=== PATIENT | female | born 1975 | race Caucasian/White ===

== ENCOUNTER 2017-03-07 22:28 | Outpatient (CLI) | payer BC ==
[~2017-03-07 22:28] MED LIST: AMBIEN5 MG PO; CYMBALTA60 MG PO; DULOXETINE HCL60 MG PO; IMITREX100 MG PO; MOTRIN600 MG PO; PRENATAL TABLE1 EAC3 PO; VICODIN 5-3001 EACH PO; VITAMIN B-6100 MG PO; ZOLPIDEM TARTRAT5 MG PO
[2017-03-07 22:38] VITALS: BP 131/67
[2017-03-07 23:39] LABS: ADD MIUA? NO; BILIRUBIN NEGATIVE; BLOOD NEGATIVE; COLOR STRAW ((YELLOW)); GLUCOSE (STRIP) NEGATIVE; KETONES NEGATIVE; LEUKOCYTES NEGATIVE; NITRITE NEGATIVE; PROTEIN (STRIP) NEGATIVE; SPECIFIC GRAVITY 1.004 (1.000-1.030); UCUL ADDED? NO; UROBILINOGEN 0.2 MG/DL (0.2-1.0)
[2017-03-07] MEDS ORDERED: LO-DOSE ASPIRIN81 M2 PO (23:58)
[2017-03-07] MEDS ORDERED: MAKENA250 MG/11 IM (23:59)
[2017-03-08] MEDS ORDERED: DICLEGIS DR 101 EACH PO
[2017-03-08 00:32] VITALS: BP 109/56
[2017-03-08 04:20] VITALS: BP 112/58
[2017-03-08 13:25] LABS: CHLAMYDIA TRACHOMATIS NEGATIVE; NEISSERIA GONORRHOEAE NEGATIVE
== END 2017-03-08 08:15 | disposition home or self-care (01) ==
LOC: LDRP-OP 22:28 → 2WEST 22:29 → LDRP-OP 06-03 13:33
PROVIDERS: Nurse Practitioner
DX: O47.03 False labor before 37 completed weeks of gestation, third trimester (principal); Z3A.31 31 weeks gestation of pregnancy; O09.523 Supervision of elderly multigravida, third trimester; O09.213 Supervision of pregnancy with history of pre-term labor, third trimester; O99.283 Endocrine, nutritional and metabolic diseases complicating pregnancy, third trimester; E72.12 Methylenetetrahydrofolate reductase deficiency
CPT/HCPCS: 59025; 81003; 82731; 87491; 87591; G0378; J7120

== ENCOUNTER 2017-04-08 16:37 | Outpatient (CLI) | payer BC ==
[~2017-04-08] VITALS: Ht 152.4 cm; Wt 70.7 kg
[~2017-04-08 16:37] MED LIST changes: +DICLEGIS DR 101 EACH PO; +LO-DOSE ASPIRIN81 M2 PO; +MAKENA250 MG/11 IM
[2017-04-08 18:46] VITALS: BP 120/68
[2017-04-29] MEDS ORDERED: DICLEGIS DR 101 EACH PO (11:25)
[2017-04-29] MEDS ORDERED: ZANTAC150 MG PO (11:25)
[2017-04-29] MEDS ORDERED: MACROBID100 MG PO (12:10)
== END 2017-04-08 19:12 | disposition home or self-care (01) ==
LOC: LDRP-OP 16:37 → 2WEST 16:38 → LDRP-OP 06-03 08:51
DX: O47.03 False labor before 37 completed weeks of gestation, third trimester (principal); O09.523 Supervision of elderly multigravida, third trimester; Z3A.36 36 weeks gestation of pregnancy
CPT/HCPCS: 59025; G0378

== ENCOUNTER 2017-04-30 01:41 | Inpatient (IN) | payer BC ==
[2017-04-30] VITALS (26 sets, daily range): BP systolic 90–160; BP diastolic 54–91
[~2017-04-30] VITALS: Ht 152.4 cm; Wt 73.0 kg
[~2017-04-30 01:41] MED LIST changes: +MACROBID100 MG PO; +ZANTAC150 MG PO
[2017-04-30 03:12] LABS: HEMATOCRIT 37.3 % (36.0-46.0); MCH 32.7 PG (29.0-34.0); MCHC 34.6 G/DL (30.0-36.0); MCV 94.7 FL (83-99); MEAN PLAT.VOLUME 12.5 uM^3 (9.5-12.4); PLATELET COUNT 145 K/uL (156-360); RBC DIS.WIDTH-CV 12.7 % (11.8-14.6); RBC DIS.WIDTH-SD 43.9 % (39-53); RED BLOOD COUNT 3.94 M/uL (3.80-5.20)
[2017-04-30] MEDS ORDERED: ENDOCET 5-3251 EACH PO (17:13)
[2017-04-30] MEDS ORDERED: IBUPROFEN800 MG PO (17:13)
[2017-05-01 00:40] VITALS: BP 134/80
[2017-05-01 07:35] VITALS: BP 131/62
[2017-05-01 07:50] LABS: EOSINOPHIL (%) 0 % (0-5); IMMATURE GRANULOCYTE (%) 0.3 % (0.0-0.7); IMMATURE GRANULOCYTE COUNT 0.1 K/uL; LYMPHOCYTE COUNT 1.1 K/uL (1.0-2.8); MCH 32.8 PG (29.0-34.0); MCHC 33.5 G/DL (30.0-36.0); MCV 98.1 FL (83-99); MEAN PLAT.VOLUME 12.8 uM^3 (9.5-12.4); MONOCYTE (%) 8.3 % (3-12); MONOCYTE COUNT 1.2 K/uL (0-0.8); NEUTROPHIL (%) 83.4 % (45-76); PLATELET COUNT 125 K/uL (156-360); RBC DIS.WIDTH-SD 46.4 % (39-53); WHITE BLOOD COUNT 14.4 K/uL (4.1-10.2)
[2017-05-01 10:35] LABS: RED BLOOD COUNT 2.65 M/uL (3.80-5.20)
[2017-05-01 11:16] VITALS: BP 126/74
[2017-05-01 15:40] VITALS: BP 119/64
[2017-05-01 19:45] VITALS: BP 121/65
[2017-05-01 23:05] VITALS: BP 122/60
[2017-05-02 02:39] VITALS: BP 99/56
[2017-05-02 11:45] VITALS: BP 133/86
[2017-05-02 23:16] VITALS: BP 127/72
[2017-05-03 07:27] VITALS: BP 128/74
== END 2017-05-03 14:49 | disposition home or self-care (01) | DRG 765 ==
LOC: LDRP-OP → 2WEST 01:42 → LDRP-OP 06-03 00:23
PROVIDERS: Nurse Practitioner; Obstetrics & Gynecology
PROC: 3E0S3CZ (ICD-10-PCS; principal; 2017-04-30)
PROC: 10D00Z1 Extraction of Products of Conception, Low, Open Approach (ICD-10-PCS; principal; 2017-04-30)
PROC: 00HU33Z Insertion of Infusion Device into Spinal Canal, Percutaneous Approach (ICD-10-PCS; principal; 2017-04-30)
DX: O62.1 Secondary uterine inertia (principal); O09.523 Supervision of elderly multigravida, third trimester; O98.313 Other infections with a predominantly sexual mode of transmission complicating pregnancy, third trimester; A60.00 Herpesviral infection of urogenital system, unspecified; Z3A.39 39 weeks gestation of pregnancy; Z37.0 Single live birth; O99.284 Endocrine, nutritional and metabolic diseases complicating childbirth; E72.12 Methylenetetrahydrofolate reductase deficiency; D64.9 Anemia, unspecified; O99.02 Anemia complicating childbirth; I48.91 Unspecified atrial fibrillation; O99.42 Diseases of the circulatory system complicating childbirth
CPT/HCPCS: 85025; 85027; 87086; C1755; J0690; J1100; J2274; J2405; J2795; J3010; J7050; J7120